=== PATIENT | male | born 2000 | race African-American/Black ===

== ENCOUNTER 2020-10-14 13:55 | Emergency (ER) | payer SELFPAY ==
[~2020-10-14] VITALS: Ht 177.8 cm; Wt 75.0 kg
[2020-10-14 13:55] VITALS: TEMP 99.3
[2020-10-14 14:14] LABS: BASO % 0.7 % (0.0-2.0); EOS # 0.1 (0.0-0.7); EOS % 2.8 % (0-4.0); GRAN % 64.6 % (42.2-75.2); HEMATOCRIT 42.4 % (42.0-52.0); HEMOGLOBIN 14.6 g/dl (13.5-18.0); LYMPH # 1.2 (1.2-3.4); LYMPH % 25.8 % (20.0-51.0); MEAN CELL VOLUME 91 fl (80.0-100.0); MEAN CORPUSCULAR HEMOGLOBIN 31 pg (27.0-31.0); MEAN CORPUSCULAR HGB CONC 34 g/dl (33.0-37.0); MEAN PLATELET VOLUME 10.1 fl (7.4-10.4); MONO # 0.3 (0.1-0.6); MONO % 5.9 % (1.7-9.3); PLATELET COUNT 210 K/mm3 (130-400); RED BLOOD COUNT 4.67 M/mm3 (4.20-5.60); REDCELL DISTRIBUTION WIDTH-CV 12.2 % (11.5-14.5)
[2020-10-14 14:26] LABS: ALANINE AMINOTRANSFERASE 17 U/L (4-49); ALBUMIN 4.1 gm/dL (3.5-5.0); ALKALINE PHOSPHATASE 67 U/L (50-136); ANION GAP 7 mmol/L (7-16); AST,SGOT 27 U/L (15-37); BILIRUBIN,TOTAL 1.1 mg/dL (0.0-1.0); BLOOD UREA NITROGEN 12 mg/dL (9-20); CALCIUM 8.5 mg/dL (8.4-10.2); CARBON DIOXIDE 26 mmol/L (22-30); CHLORIDE 107 mmol/L (98-107); CREATININE, serum 1.04 (0.66-1.25); GLUCOSE 156 mg/dL (74-106); POTASSIUM 3.5 mmol/L (3.4-5.0); SODIUM 140 mmol/L (137-145); TOTAL PROTEIN 7.1 gm/dL (6.4-8.2)
[2020-10-14 14:39] LABS: TROPONIN-I < 0.012 ng/mL (0.000-0.035)
[2020-10-14 16:07] VITALS: BP 106/31; PULSE 58
== END 2020-10-14 16:03 | disposition home or self-care (01) ==
LOC: COL.ER 13:55
PROVIDERS: Emergency Medicine
DX: F12.10 Cannabis abuse, uncomplicated (principal); R00.2 Palpitations
CPT/HCPCS: J7030